=== PATIENT | female | born 2000 | race African-American/Black ===

== ENCOUNTER 2022-06-05 10:43 | Emergency (ER) | payer OTHER, BC ==
[2022-06-05 11:27] VITALS: BP 118/75; PULSE 93; RESP 16; TEMP 98.1; BMI 29.7
[2022-06-05] MEDS ORDERED: ONDANSETRON *ODT* 4 MG TABLET SL ONE (12:24)
[2022-06-05] MEDS ORDERED: ONDANSETRON *ODT* 4 MG TABLET ONE (12:35)
[2022-06-05] MEDS ORDERED: ACETAMINOPHEN 325 MG TABLET (FP) PO ONE (12:43)
[2022-06-05] MEDS ORDERED: FAMOTIDINE 20 MG TABLET PO ONE (12:43)
[2022-06-05] MEDS ORDERED: MAG HYDROX/AL HYDROX/SIMETH 30 ML UNIT-DOSE CUP PO ONE (12:43)
[2022-06-05] MEDS ORDERED: ACETAMINOPHEN 325 MG TABLET (FP) ONE (13:16)
[2022-06-05] MEDS ORDERED: FAMOTIDINE 20 MG TABLET ONE (13:16)
[2022-06-05] MEDS ORDERED: MAG HYDROX/AL HYDROX/SIMETH 30 ML UNIT-DOSE CUP ONE (13:17)
[2022-06-05 13:37] LABS: EPI CELLS 21 /uL (0-25.1); HYALINE CASTS 1 /uL (0-3.1); URINE APPEARANCE CLEAR; URINE BACTERIA 834 /uL (0-1359); URINE BILIRUBIN NEGATIVE (NEGATIVE); URINE COLOR YELLOW; URINE GLUCOSE (UA) NEGATIVE (NEGATIVE); URINE KETONE NEGATIVE (NEGATIVE); URINE LEUK ESTERASE NEGATIVE (NEGATIVE); URINE NITRITE NEGATIVE (NEGATIVE); URINE PROTEIN NEGATIVE (NEGATIVE); URINE RBC 53 /uL (0-23.9); URINE UROBILINOGEN 0.2 mg/dL (0.2-1.0); URINE WBC 15 /uL (0-25.8)
== END 2022-06-05 14:40 | disposition home or self-care (01) ==
LOC: JERFT 10:43
DX: K59.00 Constipation, unspecified (principal)
CPT/HCPCS: 81003; 84703; 87086; 99283-25; Q0162